=== PATIENT | male | born 1940 | race Caucasian/White ===

== ENCOUNTER 2018-04-07 16:39 | Outpatient (CLI) | payer MEDICARE ==
--- NOTE | 2018-04-07 17:13 | RAD ---
KUB AND UPRIGHT: 04/07/18 HISTORY: Abdominal pain, right sided. The bowel gas pattern appears nonobstructive. No free air. Pleural and parenchymal changes are seen i n the left base. No renal calculi are seen. There are arthritic changes of the spine and scoliosis. IMPRESSION: No acute findings. POS: [facility]
--- NOTE | 2018-04-07 17:35 | RAD ---
CHEST TWO VIEWS: 04/07/18 HISTORY: Dyspnea. COMPARISON: 08/13/17 study. Heart size is within normal limits. Pleural changes in the left base persists and could represent chr onic pleural and parenchymal change. Right lung remains clear. IMPRESSION: Chronic appearing pleural and parenchymal changes in the left lung base. POS: [facility]
== END 2018-04-07 16:40 | disposition home or self-care (01) ==
LOC: MADRAD 16:39
PROVIDERS: ATTEND Obstetrics & Gynecology
DX: R06.02 Shortness of breath (principal); R10.11 Right upper quadrant pain
CPT/HCPCS: 71046; 74019

== ENCOUNTER 2018-11-04 08:45 | Outpatient (CLI) | payer MEDICARE ==
--- NOTE | 2018-11-04 08:59 | RAD ---
EXAM: Chest 2 views: HISTORY: History of lung cancer COMPARISON: 04/07/2018 FINDINGS: There is a normal-sized cardiomediastinal silhouette. There is no evidence of consolidation, mass, or pleural effusion. There is blunting of the left costophrenic angle which is stable and likely represents scarring. Degenerative changes are seen in the spine. IMPRESSION: No evidence of acute cardiopulmonary disease
== END 2018-11-04 08:46 | disposition home or self-care (01) ==
LOC: MADRAD 08:45
PROVIDERS: ATTEND Obstetrics & Gynecology
DX: Z08 Encounter for follow-up examination after completed treatment for malignant neoplasm (principal); Z85.118 Personal history of other malignant neoplasm of bronchus and lung
CPT/HCPCS: 71046

== ENCOUNTER 2019-02-08 14:37 | Outpatient (CLI) | payer MEDICARE ==
--- NOTE | 2019-02-08 15:54 | RAD ---
CHEST 2 VIEWS: Date: 02/08/19 HISTORY: Cough. COPD. COMPARISON: Radiograph dated 11/04/18. FINDINGS: There is likely chronic scar left lateral costophrenic sulcus. Severe emphysematous changes. No focal air space consolidation or pneumothorax. Cardiac silhouette and mediastinal contours are similar. IMPRESSION: Chronic findings. No acute abnormality. POS: [facility]
== END 2019-02-08 14:38 | disposition home or self-care (01) ==
LOC: MADRAD 14:37
PROVIDERS: ATTEND Nurse Practitioner Family
DX: R05 Cough (principal)
CPT/HCPCS: 71046

== ENCOUNTER 2019-05-27 15:00 | Outpatient (CLI) | payer MEDICARE ==
--- NOTE | 2019-05-27 15:39 | RAD ---
EXAM: Chest PA and lateral: HISTORY: Cough. Shortness of breath COMPARISON: 02/08/2019, 05/03/2019 FINDINGS: Heart: Normal cardiac silhouette Aorta: Unremarkable Pulmonary vessels: Normal Costophrenic angles: Chronic blunting of the left costophrenic angle. Lungs: Chronic changes of the lung parenchyma. Pneumothorax: No pneumothorax Osseous structures: No osseous abnormalities IMPRESSION: No significant interval change.
== END 2019-05-27 15:01 | disposition home or self-care (01) ==
LOC: MADRAD 15:00
PROVIDERS: ATTEND Physician Assistant
DX: R06.02 Shortness of breath (principal); R05 Cough
CPT/HCPCS: 71046

== ENCOUNTER 2021-07-06 09:04 | Outpatient (CLI) | payer MEDICARE | END 2021-07-06 09:05 | disposition home or self-care (01) | LOC: MADRAD 09:04 | PROVIDERS: ATTEND Registered Nurse | DX: J44.9 Chronic obstructive pulmonary disease, unspecified (principal); R05.9 Cough, unspecified; R50.9 Fever, unspecified; J84.9 Interstitial pulmonary disease, unspecified | CPT/HCPCS: 71046 ==